=== PATIENT | male | born 1945 | race Caucasian/White ===

== ENCOUNTER → 2018-12-26 | Outpatient (CLI) | payer OTHER, MEDICARE | END | disposition home or self-care (01) | LOC: RAD 12:17 | PROVIDERS: ATTEND Nurse Practitioner | DX: G31.89 Other specified degenerative diseases of nervous system (principal); M47.26 Other spondylosis with radiculopathy, lumbar region; M51.16 Intervertebral disc disorders with radiculopathy, lumbar region; M47.23 Other spondylosis with radiculopathy, cervicothoracic region; M48.061 Spinal stenosis, lumbar region without neurogenic claudication | CPT/HCPCS: 70551; 72141; 72148 ==